=== PATIENT | male | born 1955 | race Caucasian/White ===

== ENCOUNTER 2018-10-29 11:54 | Emergency (ER) | payer OTHER, SELFPAY ==
[2018-10-29 11:56] VITALS: BP 154/97; PULSE 85; RESP 16; TEMP 36.6; O2SAT 99; BMI 30.4
--- NOTE | 2018-10-29 12:10 | ED.DCSUM_ITS ---
- ER Visit Summary Date of Service: 10/29/18 Chief Complaint: Thrown off a horse History of Present Illness: The patient is a 63 M history of hypertension and prior right knee surgery. Patient states he was riding a horse he his. He said the horse tripped or slipped and fell and when he endorsed one down the horse landed on him. He is complaining of right shoulder pain and right elbow and right knee pain. He denies hitting his head or having any loss conscious. He denies any headache or neck pain. He denies any abdominal or back pain. He is right-hand dominant. He is on no blood thinners. Physical Examination: Well-appearing older male. Vital signs are stable. He is afebrile. H EENT exam pupils are reactive light. There is no signs of trauma to his face or scalp. Is nontender. C-spine nontender. Trachea midline. Normal range of motion. Lungs clear to auscultation bilaterally. Chest wall nontender. Heart regular rhythm no murmur. Rate about 85. Abdomen is soft and nontender normal bowel sounds no peritoneal signs. No signs of trauma. Pelvic girdle intact. 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 Right upper extremity he has pain on palpation to his right shoulder. Decreased range of motion due to pain. Also pain on palpation of his right elbow. No gross bony deformity. Right wrist is nontender deformed. Normal radial pulse. 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 Able to flex and extend the right wrist. Right lower extremity both hips are nontender. The right knee is tender palpation. Right foot and ankle are neurovascularly intact. Nontender. Back is nontender. Spine is nontender. No signs of trauma. Neurologically he is awake and alert. GCS of 15. Test Results: Right shoulder x-ray 2 views shows no acute abnormality. No fracture nor dislocation. Right elbow x-ray 2 view shows no acute abnormality. No fracture nor dislocation. Chest x-ray AP and lateral 2 views no acute abnormality. Right knee x-ray chronic degenerative arthritic changes. Prior orthopedic surgery with metallic hardware. No acute fracture. All films were read both by myself and the radiologist. Emergency Department Course and Treatment: Patient treated with IV morphine and Zofran. Repeat exam the patient is doing well at 1342 PM. He is feeling improved. He is comfortable being discharged home. I discussed his x-rays with both he and his daughter. Repeat exam is unchanged. He is feeling better. His abdomen is benign. Treatment Plan: Ice to the shoulder and other injured areas. Motrin for pain. [place] for more severe pain. Follow-up if not improving. Disposition: Discharge Impression: Acute fall from horse Acute right shoulder and knee and elbow contusions This note was generated with [employer] dictation software. It may contain incorrect words, spelling, and punctuation that were not noted in review of the chart prior to signing ED Disposition - Plan for ED Patient: Referrals: Junito Byrnes MD [Primary Care Provider] -
[2018-10-29] MEDS: Ondansetron 4 MG/2 ML Vial IV (12:18)
[2018-10-29] MEDS: morphine 8 MG/ML Syringe IV (12:18)
--- NOTE | 2018-10-29 12:23 | RAD_ITS ---
STUDY: X-RAY CHEST REASON FOR EXAM: Male, 63 years old. Pain after accident. TECHNIQUE: Upright AP and lateral views of the chest on 3 films. COMPARISON: None. FINDINGS: The lungs are clear and expanded. There is no demonstrated pleural abnormality. The heart size is upper normal. Normal mediastinum and munira. Normal visualized pulmonary arteries. Normal visualized aortic arch and descending thoracic aorta. Normal visualized thoracic spine. 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 There is no demonstrated abnormality of the visualized soft tissue structures of the upper abdomen. RAD/Chest PA and Lateral IMPRESSION: No radiographic sign of acute thoracic injury. Electronically Signed: Mu Muhammad MD at 13:21 EDT , Service support ,
--- NOTE | 2018-10-29 12:31 | RAD_ITS ---
STUDY: X-RAY - RIGHT ELBOW REASON FOR EXAM: Male, 63 years old. Pain after accident. TECHNIQUE: 3 view(s) of the elbow. COMPARISON: None. FINDINGS: Normal visualized humerus, radius and ulna. Normal radiocapitellar and ulnotrochlear articulations. The soft tissue structures are unremarkable. There is no demonstrated fracture. RAD/Elbow min 3 Views IMPRESSION: Normal x-ray examination of the right elbow. Electronically Signed: Mu Muhammad MD at 13:11 EDT , Service support ,
--- NOTE | 2018-10-29 12:39 | RAD_ITS ---
STUDY: X-RAY - RIGHT KNEE REASON FOR EXAM: Male, 63 years old. Pain after accident. TECHNIQUE: 4 view(s) of the knee on 6 images. COMPARISON: 4 images of the right knee November 22, 2014. FINDINGS: There is stable mild periarticular spurring of the femoral condyles. More notable anterior periarticular spurring of the medial femoral condyle is best seen on the sunrise view. Again seen is healed prior ORIF of a proximal right tibia fracture. Lateral metal sideplate is secured by numerous metal screws passing in a lateral to medial fashion through the proximal tibial metadiaphysis. There is stable irregular sclerosis and some articular lobulation in the mid metaphysis of the tibia and region of the lateral tibial. There is also stable spurring at the posterior aspect of the tibia at the expected position of the insertion of posterior cruciate ligament, as well as at the anterior tibial tubercle. The fracture producing noted involving the head of the fibula now appears healed. There is stable mild periarticular spurring of the base and apex of the patella, as well as stable cortical spurring at the patellar insertion of the quadriceps tendon. There is no demonstrated fracture. There is mild degenerative arthrosis of the medial femorotibial compartment. There is moderate degenerative arthrosis of the lateral femorotibial compartment with moderate joint space narrowing. There is moderate degenerative narrowing of the patellofemoral articulation. There is no demonstrated joint effusion. Stable, small, elongated ossific density seen in the tissues immediately alongside the lateral margin of the lateral femoral condyle. RAD/Knee 4 or More Views IMPRESSION: 1. No acute fracture of the right knee. 2. Stable healed prior ORIF of the proximal tibial metadiaphysis with metal hardware. The fracture of the head of the right fibula seen in 2014 also has healed. 3. There are stable osteoarthritic degenerative changes of the knee. Electronically Signed: Mu Muhammad MD at 13:20 EDT , Service support ,
--- NOTE | 2018-10-29 12:47 | RAD_ITS ---
STUDY: X-RAY - RIGHT SHOULDER REASON FOR EXAM: Male, 63 years old. Pain after accident. TECHNIQUE: 4 view(s) of the shoulder. COMPARISON: None. FINDINGS: There is mild degenerative narrowing of the inferior glenohumeral joint space. There is hypertrophic osteoarthrosis of the acromioclavicular joint with inferior osseous spur formation. Normal acromion. Normal humeral head and visualized proximal humerus. The soft tissue structures are unremarkable. There is no demonstrated fracture. Normal visualized pulmonary apex. RAD/Shoulder min 2 Views IMPRESSION: No acute fracture of the right shoulder. There is hypertrophic degenerative osteoarthrosis of the right acromioclavicular joint. Electronically Signed: Mu Muhammad MD at 13:13 EDT , Service support ,
--- NOTE | 2018-10-29 13:47 | DCINST.ED_ITS ---
ED Disposition - Plan for ED Patient: Disposition: Home or Assisted Living Instructions: CONTUSION, Upper Extremity Prescriptions: Hydrocodone Bitart/Apap 5-325 [[place] 5MG-325MG] 1 - 2 tab PO Q4H PRN PRN 4 Days #15 tab PRN Reason: Pain Prescription Printed Referrals: Junito Byrnes MD [Primary Care Provider] - As Needed Additional Instructions: Ice all sore areas especially her right shoulder. Motrin for pain. [place] for more severe pain. Follow-up if not improving. You are going to be sore and stiff tomorrow that should progressively get better over the next several days.
[2018-10-29 13:54] VITALS: BP 138/84; PULSE 81; RESP 16; O2SAT 99
== END 2018-10-29 14:28 | disposition home or self-care (01) ==
PROVIDERS: Emergency Provider Emergency Medicine; Family Provider Internal Medicine; PCP Internal Medicine
DX: S40.011A Contusion of right shoulder, initial encounter (principal); S80.01XA Contusion of right knee, initial encounter; S50.01XA Contusion of right elbow, initial encounter; M17.11 Unilateral primary osteoarthritis, right knee; V80.010A Animal-rider injured by fall from or being thrown from horse in noncollision accident, initial encounter; Y93.52 Activity, horseback riding; Y92.9 Unspecified place or not applicable; I10 Essential (primary) hypertension; Z79.899 Other long term (current) drug therapy; Z87.891 Personal history of nicotine dependence
CPT/HCPCS: 71046; 73030; 73080; 73564; 96374; 96375; 99283; A4216; J2405

== ENCOUNTER 2019-02-18 18:08 | Emergency (ER) | payer OTHER, SELFPAY ==
[2019-02-18 18:09] VITALS: BP 179/86; PULSE 84; RESP 13; TEMP 37.1; O2SAT 96; BMI 30.4
--- NOTE | 2019-02-18 18:13 | ED.RN ---
PT ARRIVES TO ED INSISTING PAIN IN HIS CHEST IS FROM HIS COUGH. PT HAS HX OF SARCOIDOSIS. PT STATES NO CARDIAC HX. PT HAS MULTIPLE CARDIAC RISK FACTORS. EKG CALLED FOR FROM TRIAGE. Rocael MARQUES RN [id number]
--- NOTE | 2019-02-18 18:21 | EKG12_ITS ---
Test Reason : DYSRHYTHMIA Blood Pressure : / mmHG Vent. Rate : 088 BPM Atrial Rate : 088 BPM P-R Int : 148 ms QRS Dur : 092 ms QT Int : 382 ms P-R-T Axes : 066 048 059 degrees QTc Int : 462 ms Normal sinus rhythm Normal ECG Confirmed by RASHARD FENG, KI ([id number]), fashion editor NIGEL GUARDADO ([id number]) on 02/21/2019 9:46:30 AM Referred By: Confirmed By:KI WETZEL MD
--- NOTE | 2019-02-18 18:38 | ED.DCSUM_ITS ---
- ER Visit Summary Date of Service: 02/18/19 Chief Complaint: Left sided rib pain History of Present Illness: The patient is a 64 M presenting with left-sided rib pain. Patient states this started 4 weeks ago. He states he lifted a bale of hay and felt a pop sensation in the left side of his chest. He has had intermittent pain since then. He believes he has reinjured it by lifting over the past couple of weeks. He has been taking Advil. He states up until today the Advil was helping his symptoms. He has had a mild cough. He has chronic shortness of breath secondary to sarcoidosis. He states his shortness of breath is no worse than usual. Pain is worsened with different positions. Denies a bdominal pain. Denies other complaints. Physical Examination: Vitals are stable. Patient is afebrile. Alert no acute distress. HEENT exam is unremarkable. Neck is supple. Lungs are clear and equal bilaterally. Left lateral chest wall tenderness with no crepitus Heart is regular rate and rhythm. Abdomen is soft nontender nondistended. Extremities are unremarkable. Skin is warm and dry. No focal neurologic deficit. Remainder of exam is unremarkable. Emergency Department Course and Treatment: Patient was given morphine, Zofran IV. EKG is sinus rate of 88 with no acute ischemic changes. Right rib series shows RIBS: There is nondisplaced fracture of the lateral aspect of the left eighth rib. CHEST: COPD. Minimal left pleural effusion. CBC normal except white count 15.6, platelet 462. Chemistries normal except for glucose 127. Troponin is negative. D-dimer elevated. Due to elevated d-dimer, CTA chest was obtained and shows technically suboptimal exam. Pulmonary emboli cannot be excluded beyond the right and left main pulmonary arteries. COPD. Trace left pleural effusion and atelectasis in the left lung base. Nondisplaced fracture of left eighth rib as seen on chest x-ray also. Patient has no tachycardia or hypoxia. He is advised to return to the ED if he has worsening shortness of breath, chest pain, syncope or new symptoms. He is given an incentive spirometer. He is given [place] and a prescription for [place]. Advised to follow- up with his primary care physician. Advised return to ED for worsening complaints. Disposition: Discharge home Impression: Left eighth rib fracture This note was generated with [employer] dictation software. It may contain incorrect words, spelling, and punctuation that were not noted in review of the chart prior to signing ED Disposition - Plan for ED Patient: Instructions: FRACTURE, Rib Prescriptions: Hydrocodone Bitart/Apap 5-325 [[place] 5MG-325MG] 1 tab PO Q6H PRN PRN 3 Days #10 tab PRN Reason: Pain Prescription Printed Referrals: Junito Byrnes MD [Primary Care Provider] -
[2019-02-18] MEDS: Aspirin 81 MG TAB.CHEW 324 MG PO (18:47)
[2019-02-18] MEDS: Morphine 4 MG/ML Syringe IV ×2 (18:47→20:15)
[2019-02-18] MEDS: Ondansetron 4 MG/2 ML Vial IV (18:47)
[2019-02-18 18:49] VITALS: O2SAT 97
--- NOTE | 2019-02-18 19:00 | RAD_ITS ---
STUDY: X-RAY - UNILATERAL RIBS ( LEFT ) WITH CHEST REASON FOR EXAM: Male, 64 years old. Left rib pain. TECHNIQUE - RIBS: 4 view(s) of the ribs. TECHNIQUE - CHEST: Single frontal view of the chest. COMPARISON: 10/29/2018 FINDINGS - RIBS: There is nondisplaced fracture of the lateral aspect of the left eighth rib. FINDINGS - CHEST: There is hyperinflation of the lungs consistent with chronic obstructive lung disease (COPD). No pneumothorax. No infiltrates. Minimal left pleural effusion. Normal size heart. Normal mediastinum and munira. Normal visualized pulmonary arteries. Normal visualized aortic arch and descending thoracic aorta. Normal visualized thoracic spine. There is degenerative osteoarthritis of the bilateral shoulders. There is no demonstrated abnormality of the visualized soft tissue structures of the upper abdomen. RAD/Ribs Uni Min 3V w/PA Chest IMPRESSION: RIBS: There is nondisplaced fracture of the lateral aspect of the left eighth rib. CHEST: COPD. Minimal left pleural effusion. Electronically Signed: Dorian Cardenas MD at 19:41 EST , Service support ,
[2019-02-18 19:04] LABS: Absolute Neutrophil Count 12.4 X10^3/uL (2.0-7.7); Basophil# 0.06 X10^3/uL; Basophil% 0.4 % (0-1); Eosinophil# 0.25 X10^3/uL; Eosinophils% 1.6 % (0-5); Hematocrit 45.3 % (40-54); Hemoglobin 15.7 g/dL (13.0-16.5); Lymphocyte % 11.5 % (19-41); Mean Corp Hgb Conc 34.7 g/dL (32-36); Mean Corpuscular Hgb 31.9 pg (27.0-32.0); Mean Corpuscular Volume 92.1 fL (80-94); Mean Platelet Vol. 10.1 fl (6.2-12.0); Monocyte# 1.03 X10^3/uL; Monocyte% 6.6 % (0-10); NRBC Flagged by Analyzer 0 % (0-5); Neutrophil % 79.5 % (47-70); Platelet Count 462 K/mm3 (150-450); RBC Distribution Width SD 40.9 fl (35.1-43.9); Red Blood Count 4.92 M/mm3 (4.6-6.2); White Blood Count 15.6 K/mm3 (4.4-11.0)
[2019-02-18 19:11] LABS: Anion Gap 7 (5-15); BUN 17 mg/dL (7-18); BUN/Creat Ratio 14.9 RATIO (10-20); Calcium,Total 9.3 mg/dL (8.5-10.1); Chloride 104 mmol/L (98-107); Creatinine, Serum 1.14 mg/dL (0.70-1.30); EST Glomerular Filtration Rate 69 mL/min (>60); Est Glom Filt Rate - Afr Amer 83 mL/min (>60); Estimated Creatinine Clearance 66.32 ml/min; Glucose 127 mg/dL (74-106); Potassium 3.6 mmol/L (3.5-5.1); Sodium Level 141 mmol/L (136-145)
--- NOTE | 2019-02-18 19:15 | CT_ITS ---
STUDY: CTA CHEST REASON FOR EXAM: Male, 64 years old. Cough. Left-sided rib fracture on chest x-ray. RADIATION DOSAGE (If Supplied By Facility): CTDIvol = ( 13.28 ) mGy, DLP = ( 370.11 ) mGycm TECHNIQUE: The examination was performed with the intravenous administration of IV Isovue 370 100. Post-processing of the angiographic images was performed, with multiplanar reformation and 3D reconstruction. Individualized dose optimization techniques were used for this CT. COMPARISON: None. FINDINGS: There is suboptimal enhancement of the pulmonary arteries. Much of the contrast remains in the left brachiocephalic vein, but the aorta is more dense than the pulmonary arteries. This indicates suboptimal technique and particularly too broad contrast bolus. Although no pulmonary emboli are seen in the main pulmonary trunk or main pulmonary arteries, pulmonary emboli cannot be excluded in the lobar vessels, segmental or subsegmental vessels. Normal thoracic aorta and visualized great vessels. There is no demonstrated aortic dissection. Normal heart and pericardium. Normal mediastinum. Normal hilar regions. Normal visualized trachea and bronchi. The lungs are hyper expanded, with flattening of the hemidiaphragms. Scarring or linear atelectasis seen in the posterior right lower lobe. Mild atelectasis is seen in the left lung base. As seen on chest x-ray, very small left pleural effusion. Also as seen and reported on recent chest x-ray, fracture of the left eighth rib. No pneumothorax. There are degenerative changes of thoracic spine. Normal visualized upper abdomen. CT/CTA Chest W/WO Contrast IMPRESSION: Technically suboptimal exam. Pulmonary emboli cannot be excluded beyond the right and left main pulmonary arteries. COPD. Trace left pleural effusion and atelectasis in the left lung base. Nondisplaced fracture of left eighth rib as seen on chest x-ray also. Electronically Signed: Dorian Cardenas MD at 20:04 EST , Service support ,
[2019-02-18 20:10] VITALS: O2SAT 95
--- NOTE | 2019-02-18 20:35 | ED.DEP ---
ED Disposition - Plan for ED Patient: Instructions: FRACTURE, Rib Prescriptions: Hydrocodone Bitart/Apap 5-325 [[place] 5MG-325MG] 1 tablet PO Q6H PRN PRN 3 Days #10 tablet PRN Reason: Pain Referrals: Junito Byrnes MD [Primary Care Provider] -
[2019-02-18 20:42] VITALS: BP 149/88; PULSE 80; RESP 18; O2SAT 95
[2019-02-18] MEDS: HYDROcodone Bitartrate/Apap 5/325 Tablet PO (20:46)
== END 2019-02-18 20:49 | disposition home or self-care (01) ==
PROVIDERS: Emergency Provider Emergency Medicine; Family Provider Internal Medicine; PCP Internal Medicine
DX: S22.32XA Fracture of one rib, left side, initial encounter for closed fracture (principal); R79.89 Other specified abnormal findings of blood chemistry; X50.9XXA Other and unspecified overexertion or strenuous movements or postures, initial encounter; Y93.9 Activity, unspecified; Y92.9 Unspecified place or not applicable; D86.9 Sarcoidosis, unspecified; J44.9 Chronic obstructive pulmonary disease, unspecified; J90 Pleural effusion, not elsewhere classified
CPT/HCPCS: 71101; 71275; 80048; 84484; 85025; 85379; 93005; 96374; 96375; 96376; 99251; 99285; J7050; Q9967; A4216; G0463; J2405

== ENCOUNTER 2019-06-11 01:48 | Emergency (ER) | payer OTHER, SELFPAY ==
[2019-06-11 01:49] VITALS: BP 180/83; PULSE 79; RESP 16; TEMP 36.5; O2SAT 97; BMI 31.8
--- NOTE | 2019-06-11 02:34 | RAD_ITS ---
STUDY: X-RAY CHEST REASON FOR EXAM: Male, 64 years old. CHRONIC COUGH -- HX OF ASTHMA -- CAME TO ED FOR A HEADACHE TECHNIQUE: PA and lateral views of the chest. COMPARISON: 10/29/2018. FINDINGS: The lungs are slightly underexpanded with mild vascular crowding, more so at the lung bases. Otherwise lung [place] are clear. There is no demonstrated pleural abnormality. Normal size heart. Normal mediastinum and munira. Normal visualized pulmonary arteries. Normal visualized aortic arch and descending thoracic aorta. There are mild degenerative changes of the visualized thoracic spine. There is degenerative osteoarthritis of the bilateral shoulders. There is no demonstrated abnormality of the visualized soft tissue structures of the upper abdomen. RAD/Chest PA and Lateral IMPRESSION: Mild bilateral basilar atelectasis with vascular crowding, otherwise no acute cardiopulmonary process. Electronically Signed: Yeimi Christy MD at 2:57 EDT , Service support ,
--- NOTE | 2019-06-11 02:34 | CT_ITS ---
STUDY: CT BRAIN WITHOUT CONTRAST REASON FOR EXAM: Male, 64 years old. AR[place] FOR 4 DAYS, COUGH X SEVERAL DAYS, BLURRED VISION, DIZZINESS, HX SARCOID AND HTN RADIATION DOSAGE (If Supplied By Facility): CTDIvol = ( 44.99 ) mGy, DLP = ( 863.60 ) mGycm TECHNIQUE: Transaxial CT imaging of the brain was performed without administration of intravenous contrast material. Individualized dose optimization techniques were used for this CT. COMPARISON: No relevant priors. FINDINGS: Normal soft tissue structures. Normal calvarium. Normal size ventricles and extra-axial spaces for the patient''s age. There are areas of decreased attenuation within the white matter tracts of the supratentorial brain, consistent with microvascular disease changes. Normal basal ganglia and thalami. Normal brainstem. Normal cerebellum. There is no intracranial hemorrhage. There are no findings of an acute ischemic infarction. Normal visualized paranasal sinuses. CT/Brain/Head without Contrast IMPRESSION: Mild microangiopathic white matter disease otherwise normal unenhanced CT scan of the brain. Electronically Signed: Yeimi Christy MD at 3:03 EDT , Service support ,
[2019-06-11 02:41] LABS: Absolute Lymphocyte Count 1.48 X10^3/uL (0.83-4.51); Absolute Neutrophil Count 11.9 X10^3/uL (2.0-7.7); Basophil# 0.05 X10^3/uL; Basophil% 0.3 % (0-1); Eosinophil# 0.34 X10^3/uL; Eosinophils% 2.3 % (0-5); Hematocrit 41.9 % (40-54); Lymphocyte # 1.48 X10^3/ul (4.0); Mean Corp Hgb Conc 33.4 g/dL (32-36); Mean Corpuscular Hgb 30.6 pg (27.0-32.0); Mean Corpuscular Volume 91.7 fL (80-94); Mean Platelet Vol. 9.9 fl (6.2-12.0); Monocyte# 0.87 X10^3/uL; Monocyte% 5.9 % (0-10); NRBC Flagged by Analyzer 0 % (0-5); Neutrophil # 11.94 X10^3/uL (2.7-7.7); Neutrophil % 81.1 % (47-70); Platelet Count 375 K/mm3 (150-450); RBC Distribution Width CV 12.4 % (11.6-14.6); RBC Distribution Width SD 41.6 fl (35.1-43.9); Red Blood Count 4.57 M/mm3 (4.6-6.2); White Blood Count 14.7 K/mm3 (4.4-11.0)
[2019-06-11] MEDS: DiphenhydrAMINE 50 MG/ML Syringe 25 MG IV (02:41)
[2019-06-11] MEDS: 0.9% Normal Saline 1,000 ML 1000 ML IV (02:41)
[2019-06-11] MEDS: Metoclopramide 10 MG/2 ML Vial IV (02:42)
[2019-06-11 02:52] LABS: Anion Gap 4 (5-15); BUN 17 mg/dL (7-18); BUN/Creat Ratio 14.8 RATIO (10-20); Calcium,Total 8.8 mg/dL (8.5-10.1); Chloride 106 mmol/L (98-107); Creatinine, Serum 1.15 mg/dL (0.70-1.30); EST Glomerular Filtration Rate 68 mL/min (>60); Est Glom Filt Rate - Afr Amer 83 mL/min (>60); Estimated Creatinine Clearance 65.75 ml/min; Glucose 160 mg/dL (74-106); Potassium 3.2 mmol/L (3.5-5.1); Sodium Level 139 mmol/L (136-145)
--- NOTE | 2019-06-11 03:18 | ED.VIS.GEN ---
History of Present Illness Chief Complaint: Headache Informant: Patient Onset: Days - 4 Narrative: 4-day history frontal headache persistent. No head injuries. No fevers. States not feeling well feeling sweaty and always aches. Chronic cough due to reported sarcoidosis history. Remote tobacco in the past. No vomiting or diarrhea. No urinary symptoms. No neck pain. States his headaches in the past have this more severe. History of hypertension on medications. Prior similar symptoms: Yes Past Medical History - Allergies and Home Meds Allergies/Adverse Reactions: Allergies enoxaparin sodium [From Lovenox] Allergy (Verified 06/11/19 01:52) Swelling Primary Care Physician: Wilfrid Noel MD [Primary Care Provider] - Past Medical History: - - Hypertension Smoking Status: Former smoker Review of Systems General: Denies: Chills, Fever, Sweats Eyes: Denies: Visual changes - bilaterally, Diplopia ENT: Denies: Rhinorrhea, Sore throat Cardiovascular: Denies: Chest pain, Palpitations Respiratory: Reports: Cough. Denies: Dyspnea, Dyspnea on exertion Gastrointestinal: Denies: Abdominal pain, Nausea, Vomiting, Diarrhea, Melena, Hematochezia Genitourinary: Denies: Dysuria, Hematuria, Frequency Musculoskeletal: Denies: Back pain, Extremity Pain Skin: Denies: Rash, Wounds Neurological: Reports: Headache. Denies: Weakness, Numbness Physical Exam Vital Signs/Narrative: Vital Signs Temp Pulse Resp BP Pulse Ox 06/11/19 01:49 97.7 F L 79 16 180/83 H 97 Inital Vital Signs reviewed: Yes General: Well nourished, Well developed, No Acute Distress Head: Normocephalic, Atraumatic Eyes: Perrl, EOMI ENT: Moist mucous membranes, No rhinorrhea Neck: Supple, Nontender, - - No meningismus Cardiovascular: Regular rate, Regular rhythm, No murmurs Respiratory: No distress, CTA bilaterally, Chest nontender Abdomen: Soft, Nontender, Nondistended, Normal bowel sounds Back: Nontender, Normal Inspection Extremities: Nontender, No edema Skin: Normal color, No rash Neurological: Alert, Oriented x3, Cranial nerves II-XII grossly intact, Normal Strength, Normal Sensation Psychological: Normal affect, Normal Mood Diagnostic/Tx/Re-eval Clinical Impression(s) from Imaging Studies Brain CT 06/11/19 02:34 IMPRESSION: Mild microangiopathic white matter disease otherwise normal unenhanced CT scan of the brain. Electronically Signed: Yeimi Christy MD at 3:03 EDT , Service support , Chest X-Ray 06/11/19 02:34 IMPRESSION: Mild bilateral basilar atelectasis with vascular crowding, otherwise no acute cardiopulmonary process. Electronically Signed: Yeimi Christy MD at 2:57 EDT , Service support , Abnormal Lab Results 06/11/19 06/11/19 06/11/19 01:20 01:20 03:40 WBC 14.7 H RBC 4.57 L Hgb 14.0 Hct 41.9 MCV 91.7 MCH 30.6 MCHC 33.4 RDW Std Deviation 41.6 RDW Coeff of Anjelica 12.4 Plt Count 375 MPV 9.9 Immature Gran % (Auto) 0.400 Neut % (Auto) 81.1 H Lymph % (Auto) 10.0 L George % (Auto) 5.9 Eos % (Auto) 2.3 Baso % (Auto) 0.3 Absolute Neuts (auto) 11.9 H Absolute Lymphs (auto) 1.48 Nucleated RBC % 0 Sodium 139 Potassium 3.2 L Chloride 106 Carbon Dioxide 29.0 Anion Gap 4 L BUN 17 Creatinine 1.15 Estim Creat Clear Calc 65.75 Est GFR (MDRD) Af Amer 83 Est GFR (MDRD) Non-Af 68 BUN/Creatinine Ratio 14.8 Glucose 160 H Calcium 8.8 Urine Color Yellow Urine Clarity Sl. Cloudy Urine pH 6.0 Ur Specific [place] 1.025 Urine Protein Negative Urine Glucose (UA) Normal Urine Ketones Negative Urine Occult Blood Negative Urine Nitrite Negative Urine Bilirubin Negative Urine Urobilinogen Normal Ur Leukocyte Esterase Negative Urine RBC 0 SEEN Urine WBC 0-5 SEEN Ur Squamous Epith Cells 0-5 SEEN Urine Bacteria 0 SEEN Urine Mucus RARE - Medical Decision Making Patient with headache, no meningismus, no focal neurological deficits. Head CT negative. Treated with migraine cocktail with additional Toradol after CT with improvement of symptoms. With his cough chest x-ray negative. Labs obtained a white count 14.7, potassium 3.2. He is on hydrochlorothiazide. Urine obtained negative for infection. Discussed with patient likely viral syndrome at this time with migraine noted symptoms. He will use Tylenol Motrin as needed. Continue oral hydration. Signs and symptom discussed return. All questions were answered. ED Disposition - Plan for ED Patient: Disposition: Home or Assisted Living Diagnosis: Headache, Viral syndrome Instructions: HEADACHE, Unspecified, VIRAL SYNDROME (Adult) Referrals: Wilfrid Noel MD [Primary Care Provider] - 3-5 Days if not improving
[2019-06-11] MEDS: Ketorolac 15 MG/ML Vial IV (03:37)
[2019-06-11 03:46] LABS: Bacteria 0 SEEN /hpf (None Seen); Red Blood Cells-Urine 0 SEEN /hpf (0-5)
[2019-06-11 03:47] LABS: Color, Urine Yellow (Yellow); Glucose, Dipstick Normal (Normal); Ketone-Dipstick Negative (Negative); Leukocyte Esterase-Dipstick Negative /ul (Negative); Nitrite-Dipstick Negative (Negative); Occult Blood-Urine Negative /ul (Negative); Protein-Dipstick Negative (Negative); Specific Gravity, Urine 1.025 (1.002-1.030); Urine Bilirubin Dipstick Negative (Negative); Urine Clarity Sl. Cloudy (Clear); Urine Urobilinogen Normal (Normal)
[2019-06-11 04:23] LABS: Squamous Epithelial Cells - UA 0-5 SEEN /hpf (0-5)
[2019-06-11 04:24] LABS: White Blood Cells 0-5 SEEN /hpf (0-5)
[2019-06-11 04:25] LABS: Mucous, Urine RARE /hpf (<or=2+)
[2019-06-11 04:45] VITALS: BP 154/61; PULSE 78; RESP 18; O2SAT 98
== END 2019-06-11 04:45 | disposition home or self-care (01) ==
PROVIDERS: Emergency Provider Emergency Medicine; PCP Family Medicine
DX: B34.9 Viral infection, unspecified (principal); R51 Headache; R05 Cough; J98.11 Atelectasis; I10 Essential (primary) hypertension; D86.9 Sarcoidosis, unspecified; Z79.899 Other long term (current) drug therapy; Z87.891 Personal history of nicotine dependence
CPT/HCPCS: 70450; 71046; 80048; 81001; 85025; 87804; 96361; 96374; 96375; 99283; J7030; A4216

== ENCOUNTER 2019-06-12 04:34 | Emergency (ER) | payer OTHER, SELFPAY ==
[2019-06-11 01:49] VITALS: BMI 31.8
[2019-06-12 04:35] VITALS: BP 194/87; PULSE 88; RESP 22; TEMP 36.9; O2SAT 97; BMI 31.4
[2019-06-12 04:40] VITALS: BP 194/87; PULSE 88; RESP 22; TEMP 36.9; O2SAT 97
--- NOTE | 2019-06-12 05:02 | ED.VISSUMM ---
- ER Visit Summary Date of Service: 06/12/19 Chief Complaint: Facial pain with nausea and vomiting History of Present Illness: The patient is a 64 M was seen about 24 hours ago in the emergency department. Since that time he had a headache that is been going on for about 5 days. And nausea vomiting. On that evaluation he had an unremarkable CAT scan and chest x-ray and lab work. States now the pain is in his left side of his face along his cheek. It is not reproducible. Headache still has a nausea vomiting. Headache is resolved. He denies any trouble moving his arms or legs. He is on no blood thinners. He denies any recent head trauma. No fever. Physical Examination: Older male no acute distress vital signs stable and afebrile. H EENT exam pupils round react light his motions are intact. No facial trauma. No facial swelling. No droop. TMs normal. Dentition exam multiple missing and decaying teeth but they are not tender. There is no gingival inflammation or abscess. No trismus. There is no facial swelling. There is no reproducible jaw or dental tenderness. He describes the pain in his left cheek area. Neck nontender. No meningismus. No lymphadenopathy. He is able to touch chin to chest. Lungs clear to auscultation bilaterally. Heart regular rhythm no murmur. Abdomen soft nontender. Normal bowel sounds no peritoneal signs. Right upper and right lower quadrants are unremarkable. Extremities moves all 4. Neurovascular intact. Equal symmetrical 5-5 parts classifier strength. Equal symmetrical dorsi plantarflexion. Fingertip to nose within normal limits. Back exam unremarkable. Neurologically he is awake and alert with no focal motor deficits. NIH is 0. Pupils are round reactive light. Not steamy. Extra motions are intact. This does not appear to be glaucoma. Test Results: Reviewed the patient's chest x-ray, CAT scan and labs tonight that unremarkable. Emergency Department Course and Treatment: Treated with IV fluids, morphine and Zofran. Repeat exam at 5:50 AM he feels somewhat better the pain medication. Patient describes the pain along his left cheek. It is not specifically reproducible. There is no swelling or redness. His neurologic exam remains normal. He and I discussed the possibility of this being trigeminal neuralgia. Treatment Plan: [place] for pain. Follow-up with his doctor. Return if worse. Disposition: Discharge Impression: Left facial pain of uncertain etiology Rule out trigeminal neuralgia Nausea and vomiting This note was generated with [employer] dictation software. It may contain incorrect words, spelling, and punctuation that were not noted in review of the chart prior to signing ED Disposition - Plan for ED Patient: Disposition: Home or Assisted Living Instructions: Trigeminal Neuralgia Prescriptions: Hydrocodone/Acetaminophen [[place] 7.5-325 Tablet] 1 ea PO 4X/DAY PRN PRN #14 tab PRN Reason: Pain Or Fever Prescription Printed Referrals: Wilfrid Noel MD [Primary Care Provider] - 3-5 Days if not improving Additional Instructions: No specific cause for your left facial pain. This could be secondary to something called trigeminal neuralgia or you have inflammation and intense pain secondary to your facial nerve. [place] for pain. Zofran for nausea as needed. Follow-up with your doctor not improving. Return to ER if you are feeling worse.
[2019-06-12] MEDS: 0.9% Normal Saline 1,000 ML 1000 ML IV (05:18)
[2019-06-12] MEDS: morphine 8 MG/ML Syringe 6 MG IV (05:18)
[2019-06-12] MEDS: Ondansetron 4 MG/2 ML Vial IV (05:19)
--- NOTE | 2019-06-12 05:54 | DCINST.ED_ITS ---
ED Disposition - Plan for ED Patient: Disposition: Home or Assisted Living Instructions: Trigeminal Neuralgia Prescriptions: Hydrocodone/Acetaminophen [[place] 7.5-325 Tablet] 1 ea PO 4X/DAY PRN PRN #14 tab PRN Reason: Pain Or Fever Prescription Printed Referrals: Wilfrid Noel MD [Primary Care Provider] - 3-5 Days if not improving Additional Instructions: No specific cause for your left facial pain. This could be secondary to something called trigeminal neuralgia or you have inflammation and intense pain secondary to your facial nerve. [place] for pain. Zofran for nausea as needed. Follow-up with your doctor not improving. Return to ER if you are feeling worse.
[2019-06-12 06:34] VITALS: BP 189/91; PULSE 76; RESP 19; O2SAT 97
[2019-06-12] MEDS: Ondansetron ODT 4 MG Tablet 8 MG PO (06:43)
--- NOTE | 2019-06-12 06:48 | ED.RN ---
tis nurse went to d/c the pt. as the pt was being wheeled out of the room he said I'm going to be sick. pt began vomiting. pt placed back in bed and md aware. oral Zofran ordered. observe pt.
[2019-06-12 06:57] LABS: Erythrocyte Sedimentation Rate 41 mm/hr (0-20)
== END 2019-06-12 07:46 | disposition home or self-care (01) ==
PROVIDERS: Emergency Provider Emergency Medicine; PCP Family Medicine
DX: R51 Headache (principal); R11.2 Nausea with vomiting, unspecified; K02.9 Dental caries, unspecified; I10 Essential (primary) hypertension; K21.9 Gastro-esophageal reflux disease without esophagitis; D86.9 Sarcoidosis, unspecified; J45.909 Unspecified asthma, uncomplicated; Z79.899 Other long term (current) drug therapy
CPT/HCPCS: 85652; 96361; 96374; 96375; 99282; J7030; A4216; J2405

== ENCOUNTER 2019-06-13 15:24 | Emergency (ER) | payer OTHER, SELFPAY ==
[2019-06-12 04:35] VITALS: BMI 31.4
[2019-06-13 15:26] VITALS: BP 175/94; PULSE 76; RESP 16; TEMP 36.5; O2SAT 95; BMI 31.2
--- NOTE | 2019-06-13 15:41 | ED.DCSUM_ITS ---
History of Present Illness Chief Complaint: Headache Informant: Patient Onset: Days Context: Gradual Onset Timing: Waxes and wanes Current Severity: Moderate Maximum Severity: Severe Narrative: Presents with continued headache, nausea, and vomiting. Has been seen in the ER the last 2 days for similar. He had a CT scan done on the was unremarkable. On that visit he was treated with Toradol, Reglan, and Benadryl. He reported some improvement in his symptoms but headache did return. He was seen last night with headache, nausea, vomiting, and left facial pain. He was given morphine and Zofran. Patient states today he continues to vomit and cannot keep his medication down. He points to the left forehead and describing the area of his pain. He states it feels a gets behind the left eye and up over the top of the left head. He denies vision change but does have photophobia. No fever or chills. No neck pain. - Past Medical History (1) Sarcoidosis Status: Chronic (2) Hypertension Status: Chronic Past Medical History - Allergies and Home Meds Allergies/Adverse Reactions: Allergies enoxaparin sodium [From Lovenox] Allergy (Verified 06/13/19 15:26) Swelling Primary Care Physician: Wilfrid Noel MD [Primary Care Provider] - Prior records reviewed: Yes Smoking Status: Never smoker Review of Systems General: Denies: Fever Eyes: Reports: - - Photophobia. Denies: Visual changes - bilaterally ENT: Denies: Bilateral ear pain, Sore throat Cardiovascular: Denies: Chest pain Respiratory: Denies: Dyspnea, Cough Gastrointestinal: Reports: Nausea, Vomiting. Denies: Abdominal pain, Diarrhea Genitourinary: Denies: Dysuria Musculoskeletal: Denies: Swelling, Extremity Pain Skin: Denies: Rash Neurological: Reports: Headache Hematologic: Denies: Easy bruising, Easy bleeding Allergy: Denies: Uticaria Physical Exam Vital Signs/Narrative: Vital Signs Temp Pulse Resp BP Pulse Ox 06/13/19 15:26 97.7 F L 76 16 175/94 H 95 Inital Vital Signs reviewed: Yes General: Well nourished, Well developed Head: Normocephalic ENT: Moist mucous membranes Neck: Supple Cardiovascular: Regular rate, Regular rhythm Respiratory: No distress, CTA bilaterally Abdomen: Soft, Nontender Back: Nontender Extremities: Nontender Skin: Normal color Neurological: Alert, Oriented x3, Normal Strength, Normal Sensation Psychological: Normal affect Diagnostic/Tx/Re-eval Laboratory Results 06/13/19 06/13/19 15:50 15:50 WBC 15.0 H RBC 4.58 L Hgb 14.1 Hct 41.5 MCV 90.6 MCH 30.8 MCHC 34.0 RDW Std Deviation 40.2 RDW Coeff of Anjelica 12.2 Plt Count 409 MPV 9.6 Immature Gran % (Auto) 0.400 Neut % (Auto) 84.8 H Lymph % (Auto) 7.7 L Cotton % (Auto) 6.8 Eos % (Auto) 0.1 Baso % (Auto) 0.2 Absolute Neuts (auto) 12.7 H Absolute Lymphs (auto) 1.15 Nucleated RBC % 0 Sodium 137 Potassium 3.4 L Chloride 102 Carbon Dioxide 29.0 Anion Gap 6 BUN 12 Creatinine 0.82 Estim Creat Clear Calc 92.21 Est GFR (MDRD) Af Amer 121 Est GFR (MDRD) Non-Af 100 BUN/Creatinine Ratio 14.6 Glucose 140 H Calcium 8.9 - Medical Decision Making I did review the patient's work-up from the past 2 days. Patient was given Toradol, Reglan, Benadryl, and IV fluids. On repeat evaluation he does feel improved. He was able to keep his blood pressure medicine down shortly prior to arrival. Patient's blood work today is similar to 2 days ago. Patient will be discharged with prescriptions for Toradol, Reglan, and Benadryl. He is to return for worsening symptoms or concerns. He voices understanding and agreement. ED Disposition - Plan for ED Patient: Disposition: Home or Assisted Living Diagnosis: Migraine Instructions: ED, Migraine (Classical) Prescriptions: DiphenhydrAMINE [Benadryl] 50 mg PO TID PRN PRN #30 cap PRN Reason: Headache Transmission Status: Pending to [facility] Metoclopramide [Reglan] 10 mg PO Q8H PRN PRN #14 tab PRN Reason: Headache Transmission Status: Pending to [facility] Ketorolac [Toradol] 10 mg PO Q8H PRN #14 tab PRN Reason: Headache Transmission Status: Pending to [facility] Referrals: Wilfrid Noel MD [Primary Care Provider] - 5-7 Days
[2019-06-13] MEDS: Ketorolac 30 MG/ML Syringe IV (15:59)
[2019-06-13] MEDS: DiphenhydrAMINE 50 MG/ML Syringe 25 MG IV (16:00)
[2019-06-13] MEDS: Metoclopramide 10 MG/2 ML Vial IV (16:02)
[2019-06-13] MEDS: 0.9% Normal Saline 1,000 ML 1000 ML IV (16:03)
[2019-06-13 16:05] LABS: Absolute Lymphocyte Count 1.15 X10^3/uL (0.83-4.51); Absolute Neutrophil Count 12.7 X10^3/uL (2.0-7.7); Basophil# 0.03 X10^3/uL; Basophil% 0.2 % (0-1); Eosinophil# 0.02 X10^3/uL; Eosinophils% 0.1 % (0-5); Hematocrit 41.5 % (40-54); Hemoglobin 14.1 g/dL (13.0-16.5); Lymphocyte # 1.15 X10^3/ul (4.0); Lymphocyte % 7.7 % (19-41); Mean Corpuscular Hgb 30.8 pg (27.0-32.0); Mean Corpuscular Volume 90.6 fL (80-94); Mean Platelet Vol. 9.6 fl (6.2-12.0); Monocyte# 1.02 X10^3/uL; Monocyte% 6.8 % (0-10); NRBC Flagged by Analyzer 0 % (0-5); Neutrophil # 12.72 X10^3/uL (2.7-7.7); Neutrophil % 84.8 % (47-70); Platelet Count 409 K/mm3 (150-450); RBC Distribution Width CV 12.2 % (11.6-14.6); RBC Distribution Width SD 40.2 fl (35.1-43.9); Red Blood Count 4.58 M/mm3 (4.6-6.2)
[2019-06-13 16:22] LABS: Anion Gap 6 (5-15); BUN 12 mg/dL (7-18); BUN/Creat Ratio 14.6 RATIO (10-20); Calcium,Total 8.9 mg/dL (8.5-10.1); Chloride 102 mmol/L (98-107); Creatinine, Serum 0.82 mg/dL (0.70-1.30); EST Glomerular Filtration Rate 100 mL/min (>60); Est Glom Filt Rate - Afr Amer 121 mL/min (>60); Estimated Creatinine Clearance 92.21 ml/min; Glucose 140 mg/dL (74-106); Potassium 3.4 mmol/L (3.5-5.1); Sodium Level 137 mmol/L (136-145)
[2019-06-13 17:04] VITALS: BP 152/73; PULSE 68; RESP 18; O2SAT 99
== END 2019-06-13 17:05 | disposition home or self-care (01) ==
PROVIDERS: Emergency Provider Emergency Medicine; PCP Family Medicine
DX: G43.909 Migraine, unspecified, not intractable, without status migrainosus (principal); I10 Essential (primary) hypertension; D86.9 Sarcoidosis, unspecified; Z79.899 Other long term (current) drug therapy
CPT/HCPCS: 80048; 85025; 96361; 96374; 96375; 99283; J7030; A4216